=== PATIENT | male | born 2000 | race Caucasian/White ===

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

== ENCOUNTER 2022-08-31 16:00 | Observation (INO) | payer SELFPAY ==
[2022-08-31 16:06] VITALS: BP 130/77; PULSE 106; RESP 14; TEMP 36.8; O2SAT 97; BMI 27.2
--- NOTE | 2022-08-31 16:56 | W.ED.GENADLT ---
Documented by User: KAUR Barclay 09/01/22 00:33 HPI - General Adult General: Chief complaint: General Medical Stated complaint: throat swelling Time Seen by Provider: 08/31/22 16:11 History of Present Illness: Patient is a 22-year-old male comes to the ED with acid reflux. Patient has a history of acid reflux and takes omeprazole for it daily. Patient says symptoms started at rest approximately 4 days ago. He currently takes omeprazole and his also taken some famotidine as well since start of symptoms. He describes having a burning type pain in his stomach that has since radiated up into his throat as well. Chest pain worsens when he breathes in. Endorses having some burning chest pain as well. He reports some nausea but denies any episodes of emesis. he has tried taking some [id number] Tums as well and it has not provided any relief. Patient is a daily tobacco smoker. Patient admits to snorting cocaine approximately 48 hours ago. Associated symptoms: Reports chest pain; Deny dyspnea, headache(s), nausea, rash, palpitations or vomiting Review of Systems Const: Denies: fever(s), chills or fatigue Eyes: Denies: change in vision or eye discomfort ENMT: Denies: throat pain, odynophagia, nasal discharge or nasal congestion Card: Reports: chest pain; Denies: palpitations, edema, swelling of feet/ankles, dyspnea on exertion or orthopnea Resp: Denies: dyspnea, productive cough or non-productive cough GI: Reports: heartburn; Denies: abdominal pain, nausea, vomiting, diarrhea, constipation or hematochezia : Denies: flank pain, difficulty urinating, dysuria or hematuria Musc: Denies: neck pain, back pain or extremity swelling Skin/Breast: Denies: rash or new lesions Neuro: Denies: headache(s), numbness in extremities or weakness in extremities PFSH ED PFSH: Medical History Depression No pertinent family history Family History (Updated 09/01/22 @ 01:57 by Pearl Kaur MD) Other CAD (coronary artery disease) Social History Smoking and tobacco status: never smoked Alcohol intake: never Physical Exam Const: COMMON NORMALS: patient oriented x3 and alert GENERAL APPEARANCE: cooperative HENMT: COMMON NORMALS: normocephalic HEAD & SCALP: normocephalic MOUTH: Normal oral and palatal mucosa present THROAT: posterior oropharynx normal and uvula midline Neck/C-Spine: COMMON NORMALS: supple GENERAL: Yes normal visual inspection Resp: COMMON NORMALS: normal respiratory effort, No retractions, No use of accessory muscles and clear to auscultation bilaterally AUSCULTATION: clear to auscultation bilaterally Cardio: COMMON NORMALS: regular rate, regular rhythm, S1 normal heart sound present, S2 normal heart sound present, No gallops present (Cardio), No clicks present (Cardio), No murmurs present (Cardio) and Peripheral pulses 2+ throughout RATE: regular rate RHYTHM: regular rhythm HEART SOUNDS: S1 normal heart sound present and S2 normal heart sound present PERIPHERAL PULSES: Peripheral pulses 2+ throughout GI: COMMON NORMALS: Normal to inspection, nondistended, normoactive bowel sounds present, Soft to palpation, non-tender and no masses PALPATION: Yes Soft to palpation : COMMON NORMALS: Yes no CVA tenderness BLADDER/KIDNEY EXAM: Yes no CVA tenderness Back/Pelvis: COMMON NORMALS: no CVA tenderness Extremity: COMMON NORMALS: normal to inspection Neuro: COMMON NORMALS: patient oriented x3 SENSORIUM/ORIENTATION: Yes alert GAIT: Yes Normal gait present Skin: GENERAL SKIN EXAM: dry skin Course Consultations: Consultation #1: Contacted Dr. Fuentes about patient case and his elevated baseline troponin and the -1 delta after 2-hour troponin was taken. He thinks his chest pain is likely due to his cocaine use. He thinks patient should be admitted and have his troponins trended for 6 more hours and an echocardiogram tomorrow. Time: 21:25 Consultation #2: I Contact the hospitalist and told Dr. Kaur about patient case and he will be admitted to have troponins trended and an echocardiogram tomorrow. Time: 21:30 Vital Signs: Vital signs: Vital Signs Temperature 97.7 F 09/01/22 08:00 Pulse Rate 69 09/01/22 08:00 Respiratory Rate 16 09/01/22 08:00 Blood Pressure 118/78 09/01/22 08:00 Pulse Oximetry 95 09/01/22 08:00 Oxygen Delivery Me thod 09/01/22 08:00 MDM - General Adult Medical Decision Making Patient is a 22-year-old male comes to the ED with chest pain and acid reflux symptoms. He admits to snorting cocaine approximately 48 hours ago. He has a history of acid reflux and takes omeprazole and Zantac. Vitals are stable. Exam is benign. Chest x-ray showed no acute findings. CBC and CMP were unremarkable. Baseline troponin was 41 and 2-hour troponin was 40. EKG showed no acute findings and were normal sinus rhythm. I contacted Dr. Fuentes the bark fitter on-call and told about patient case. Given his age, drug use and elevated troponins he recommended having patient admitted and to continue following the troponin levels and he will do an echocardiogram tomorrow. I called Dr. Kaur the hospitalist and she had patient admitted. Dr. Escalante reviewed case and agreed with plan. Lab Data I reviewed the patient's lab results. 08/31/22 18:01 Radiology Impressions Chest X-Ray 08/31/22 18:36 IMPRESSION: No acute findings. Laboratory Results WBC 9.5 10^3/uL (4.5-13.0) 08/31/22 18:25 RBC 5.71 10^6/uL (4.1-5.3) H 08/31/22 18:25 Hgb 16.7 g/dL (11.7-16.6) H 08/31/22 18:25 Hct 48.2 % (42.0-52.0) 08/31/22 18:25 MCV 84.4 fl (80-94) 08/31/22 18:25 MCH 29.2 pg (28.0-34.0) 08/31/22 18:25 MCHC 34.6 g/dL (30.0-36.0) 08/31/22 18:25 RDW 12.6 % (12.1-15.1) 08/31/22 18:25 Plt Count 268 10^3/cmm (130-400) 08/31/22 18:25 MPV 10.6 fL (7.4-10.4) H 08/31/22 18:25 Neut % (Auto) 54.1 % 08/31/22 18:25 Lymph % (Auto) 29.7 % 08/31/22 18:25 Piute % (Auto) 10.1 % 08/31/22 18: Eos % (Auto) 4.6 % 08/31/22: Baso % (Auto) 1.2 % 08/31/22: Neut # (Auto) 5.15 10^3/uL (1.8-8.0) 08/31/22 18: Lymph # (Auto) 2.8 10^3/uL (1.5-6.5) 08/31/22: Pi[place] # (Auto) 1.0 10^3/uL (0.2-0.9) H 08/31/22: Eos # (Auto) 0.4 10^3/uL (0.0-0.8) 08/31/22: Baso # (Auto) 0.1 10^3/uL (0.0-0.1) 08/31/22: Nucleated RBC % (auto) 0 % 08/31/22: Nucleated RBCs # 0.0 /100WBC 08/31/22: Sodium 138 mmol/L (136-145) 08/31/22 18: Potassium 3.8 mmol/L (3.5-5.1) 08/31/22 18: Chloride 99 mmol/L (98-107) 08/31/22 18: Carbon Dioxide 26 mmol/L (22-29) 08/31/22 18: Anion Gap 16.8 (5-19) 08/31/22 18: BUN 13 mg/dL (6-20) 08/31/22 18: Creatinine 0.9 mg/dL (0.7-1.2) 08/31/22 18: GFR Calculation 107.6 mL/min (90-130) 08/31/22 18: Glucose 103 mg/dL (65-115) 08/31/22 18: Estimat Average Glucose 97 08/31/22: Hemoglobin A1c 5.0 % (4.0-6.0) 08/31/22: Calculated Osmolality 286 mOsm/kg (285-295) 08/31/22 18: Calcium 10.3 mg/dL (8.5-10.5) 08/31/22 18:01 Total Bilirubin 2.9 mg/dL (0.15-1.2) H 08/31/22 18:01 AST 17 U/L (0-40) 08/31/22 18:01 ALT 12 U/L (0-41) 08/31/22 18:01 Alkaline Phosphatase 48 U/L (40-130) 08/31/22 18:01 Troponin T Baseline 41 ng/L (0-15) H 08/31/22 18:01 Troponin T 120 Minute 40.68 ng/L (0-15) H 08/31/22 19:54 Delta Troponin T -0.32 ABS# (0-10) L 08/31/22 19:54 Total Protein 8.4 g/dL (6.6-8.7) 08/31/22 18:01 Albumin 5.0 g/dL (3.5-5.2) 08/31/22 18:01 Globulin 3.4 g/dL (1.3-4.6) 08/31/22 18:01 Triglycerides 81 mg/dL (0-150) 08/31/22 19:45 Cholesterol 114 mg/dL (0-200) 08/31/22 19:45 LDL Cholesterol, Calc 58 mg/dL (50-129) 08/31/22 19:45 HDL Cholesterol 40 mg/dL (60-100) L 08/31/22 19:45 LDL/HDL Ratio 1.45 RATIO (0.00-3.22) 08/31/22 19:45 Cholesterol/HDL Ratio 2.85 mg/dL (1.0-5.00) 08/31/22 19:45 EKG Data EKG 1: EKG interpretation date: 08/31/22 Interpretation: Sinus rhythm, 80 bpm, no ST segment ovation depression seen. EKG reviewed by Dr. Escalante and he agreed that there are no acute findings. Computer generated interpretation: Chest X-Ray 08/31/22 18:36 IMPRESSION: No acute findings. Discharge Plan Discharge Patient Disposition: Admitted As Inpatient Admit Provider: Pearl Kaur Clinical Impression: Chest pain Qualifiers: Chest pain type: unspecified Qualified Code(s): R07.9 - Chest pain, unspecified Condition: Stable Discharge Diet: Regular Discharge Activity: Resume usual activity and Increase activity as tolerated Coding Level of Care Code ED Furnace Puncher for Chg Fwd Exam Comprehensive Documented by User: Pearl Kaur MD 08/31/22 22:49 HPI - General Adult General: Chief complaint: General Medical Stated complaint: throat swelling Time Seen by Provider: 08/31/22 16:11 PFSH ED PFSH: Medical History Depression No pertinent family history Family History (Updated 09/01/22 @ 01:57 by Pearl Kaur MD) Other CAD (coronary artery disease) Social History Smoking and tobacco status: never smoked Alcohol intake: never Course Vital Signs: Vital signs: Vital Signs Temperature 97.7 F 09/01/22 08:00 Pulse Rate 69 09/01/22 08:00 Respiratory Rate 16 09/01/22 08:00 Blood Pressure 118/78 09/01/22 08:00 Pulse Oximetry 95 09/01/22 08:00 Oxygen Delivery Me thod 09/01/22 08:00 MDM - General Adult Medical Decision Making per ER provider Lab Data 08/31/22 18:01 Radiology Impressions Chest X-Ray 08/31/22 18:36 IMPRESSION: No acute findings. Laboratory Results WBC 9.5 10^3/uL (4.5-13.0) 08/31/22 18:25 RBC 5.71 10^6/uL (4.1-5.3) H 08/31/22 18:25 Hgb 16.7 g/dL (11.7-16.6) H 08/31/22 18:25 Hct 48.2 % (42.0-52.0) 08/31/22 18:25 MCV 84.4 fl (80-94) 08/31/22 18:25 MCH 29.2 pg (28.0-34.0) 08/31/22 18:25 MCHC 34.6 g/dL (30.0-36.0) 08/31/22 18: RDW 12.6 % (12.1-15.1) 08/31/22 18: Plt Count 268 10^3/cmm (130-400) 08/31/22 18: MPV 10.6 fL (7.4-10.4) H 08/31/22 18: Neut % (Auto) 54.1 % 08/31/22: Lymph % (Auto) 29.7 % 08/31/22: Piute % (Auto) 10.1 % 08/31/22: Eos % (Auto) 4.6 % 08/31/22: Baso % (Auto) 1.2 % 08/31/22 Neut # (Auto) 5.15 10^3/uL (1.8-8.0) 08/31/22: Lymph # (Auto) 2.8 10^3/uL (1.5-6.5) 08/31/22: Piute # (Auto) 1.0 10^3/uL (0.2-0.9) H 08/31/22: Eos # (Auto) 0.4 10^3/uL (0.0-0.8) 08/31/22: Baso # (Auto) 0.1 10^3/uL (0.0-0.1) 08/31/22: Nucleated RBC % (auto) 0 % 08/31/22: Nucleated RBCs # 0.0 /100WBC 08/31/22 18: Sodium 138 mmol/L (136-145) 08/31/22 18: Potassium 3.8 mmol/L (3.5-5.1) 08/31/22 18: Chloride 99 mmol/L (98-107) 08/31/22 18: Carbon Dioxide 26 mmol/L (22-29) 08/31/22 18: Anion Gap 16.8 (5-19) 08/31/22 18: BUN 13 mg/dL (6-20) 08/31/22 18: Creatinine 0.9 mg/dL (0.7-1.2) 08/31/22 18: GFR Calculation 107.6 mL/min (90-130) 08/31/22 18: Glucose 103 mg/dL (65-115) 08/31/22 18: Estimat Average Glucose 97 08/31/22 18: Hemoglobin A1c 5.0 % (4.0-6.0) 08/31/22 18: Calculated Osmolality 286 mOsm/kg (285-295) 08/31/22 18: Calcium 10.3 mg/dL (8.5-10.5) 08/31/22 18: Total Bilirubin 2.9 mg/dL (0.15-1.2) H 08/31/22 18: AST 17 U/L (0-40) 08/31/22 18: ALT 12 U/L (0-41) 08/31/22 18: Alkaline Phosphatase 48 U/L (40-130) 08/31/22 18: Troponin T Baseline 41 ng/L (0-15) H 08/31/22 18: Troponin T 120 Minute 40.68 ng/L (0-15) H 08/31/22 19:54 Delta Troponin T -0.32 ABS# (0-10) L 08/31/22 19:54 Total Protein 8.4 g/dL (6.6-8.7) 08/31/22 18: Albumin 5.0 g/dL (3.5-5.2) 08/31/22 18: Globulin 3.4 g/dL (1.3-4.6) 08/31/22 18: Triglycerides 81 mg/dL (0-150) 08/31/22 19:45 Cholesterol 114 mg/dL (0-200) 08/31/22 19:45 LDL Cholesterol, Calc 58 mg/dL (50-129) 08/31/22 19:45 HDL Cholesterol 40 mg/dL (60-100) L 08/31/22 19:45 LDL/HDL Ratio 1.45 RATIO (0.00-3.22) 08/31/22 19:45 Cholesterol/HDL Ratio 2.85 mg/dL (1.0-5.00) 08/31/22 19:45 EKG Data EKG 1: Computer generated interpretation: Chest X-Ray 08/31/22 18:36 IMPRESSION: No acute findings. Other Data see hospitalist note. This note assigned to hospitalist by [facility] for unclear reasons Discharge Plan Discharge Patient Disposition: Admitted As Inpatient Admit Provider: Pearl Kaur Clinical Impression: Chest pain Qualifiers: Chest pain type: unspecified Qualified Code(s): R07.9 - Chest pain, unspecified Condition: Stable Discharge Diet: Regular Discharge Activity: Resume usual activity and Increase activity as tolerated Coding Level of Care Code ED Furnace Puncher for Chg Fwd Exam Comprehensive Documented by User: Modesto Escalante DO 09/01/22 16:09 HPI - General Adult General: Chief complaint: General Medical Stated complaint: throat swelling Time Seen by Provider: 08/31/22 16:11 [facility] ED PFSH: Medical History Depression No pertinent family history Family History (Updated 09/01/22 @ 01:57 by Pearl Kaur MD) Other CAD (coronary artery disease) Social History Smoking and tobacco status: never smoked Alcohol intake: never Course Vital Signs: Vital signs: Vital Signs Temperature 97.7 F 09/01/22 08:00 Pulse Rate 69 09/01/22 08:00 Respiratory Rate 16 09/01/22 08:00 Blood Pressure 118/78 09/01/22 08:00 Pulse Oximetry 95 09/01/22 08:00 Oxygen Delivery Me thod 09/01/22 08:00 [facility] - General Adult Medical Decision Making Patient is a 22-year-old male comes to the ED with chest pain and acid reflux symptoms. He admits to snorting cocaine approximately 48 hours ago. He has a history of acid reflux and takes omeprazole and Zantac. Vitals are stable. Exam is benign. Chest x-ray showed no acute findings. CBC and CMP were unremarkable. Baseline troponin was 41 and 2-hour troponin was 40. EKG showed no acute findings and were normal sinus rhythm. I contacted Dr. Fuentes the bark fitter on-call and told about patient case. Given his age, drug use and elevated troponins he recommended having patient admitted and to continue following the troponin levels and he will do an echocardiogram tomorrow. I called Dr. Kaur the hospitalist and she had patient admitted. Dr. Escalante reviewed case and agreed with plan. This patient was originally seen by Mr. Vidal PA-C. I agree with his history, evaluation, and management. Lab Data 08/31/22 18:01 Radiology Impressions Chest X-Ray 08/31/22 18:36 IMPRESSION: No acute findings. Laboratory Results WBC 9.5 10^3/uL (4.5-13.0) 08/31/22 18: RBC 5.71 10^6/uL (4.1-5.3) H 08/31/22 18: Hgb 16.7 g/dL (11.7-16.6) H 08/31/22 18: Hct 48.2 % (42.0-52.0) 08/31/22 18: MCV 84.4 fl (80-94) 08/31/22 18: MCH 29.2 pg (28.0-34.0) 08/31/22 18: MCHC 34.6 g/dL (30.0-36.0) 08/31/22 18: RDW 12.6 % (12.1-15.1) 08/31/22 18: Plt Count 268 10^3/cmm (130-400) 08/31/22 18: MPV 10.6 fL (7.4-10.4) H 08/31/22 18:25 Neut % (Auto) 54.1 % 08/31/22 18: Lymph % (Auto) 29.7 % 08/31/22 18:25 Piute % (Auto) 10.1 % 08/31/22 18: Eos % (Auto) 4.6 % 08/31/22 18: Baso % (Auto) 1.2 % 08/31/22 18: Neut # (Auto) 5.15 10^3/uL (1.8-8.0) 08/31/22 18: Lymph # (Auto) 2.8 10^3/uL (1.5-6.5) 08/31/22 18:25 Piute # (Auto) 1.0 10^3/uL (0.2-0.9) H 08/31/22 18: Eos # (Auto) 0.4 10^3/uL (0.0-0.8) 08/31/22 18: Baso # (Auto) 0.1 10^3/uL (0.0-0.1) 08/31/22: Nucleated RBC % (auto) 0 % 08/31/22: Nucleated RBCs # 0.0 /100WBC 08/31/22 18: Sodium 138 mmol/L (136-145) 08/31/22 18: Potassium 3.8 mmol/L (3.5-5.1) 08/31/22 18: Chloride 99 mmol/L (98-107) 08/31/22 18: Carbon Dioxide 26 mmol/L (22-29) 08/31/22 18: Anion Gap 16.8 (5-19) 08/31/22 18: BUN 13 mg/dL (6-20) 08/31/22 18: Creatinine 0.9 mg/dL (0.7-1.2) 08/31/22 18: GFR Calculation 107.6 mL/min (90-130) 08/31/22 18: Glucose 103 mg/dL (65-115) 08/31/22 18: Estimat Average Glucose 97 08/31/22: Hemoglobin A1c 5.0 % (4.0-6.0) 08/31/22: Calculated Osmolality 286 mOsm/kg (285-295) 08/31/22 18: Calcium 10.3 mg/dL (8.5-10.5) 08/31/22 18: Total Bilirubin 2.9 mg/dL (0.15-1.2) H 08/31/22 18: AST 17 U/L (0-40) 08/31/22 18: ALT 12 U/L (0-41) 08/31/22 18: Alkaline Phosphatase 48 U/L (40-130) 08/31/22 18: Troponin T Baseline 41 ng/L (0-15) H 08/31/22 18:01 Troponin T 120 Minute 40.68 ng/L (0-15) H 08/31/22 19:54 Delta Troponin T -0.32 ABS# (0-10) L 08/31/22 19:54 Total Protein 8.4 g/dL (6.6-8.7) 08/31/22 18:01 Albumin 5.0 g/dL (3.5-5.2) 08/31/22 18:01 Globulin 3.4 g/dL (1.3-4.6) 08/31/22 18:01 Triglycerides 81 mg/dL (0-150) 08/31/22 19:45 Cholesterol 114 mg/dL (0-200) 08/31/22 19:45 LDL Cholesterol, Calc 58 mg/dL (50-129) 08/31/22 19:45 HDL Cholesterol 40 mg/dL (60-100) L 08/31/22 19:45 LDL/HDL Ratio 1.45 RATIO (0.00-3.22) 08/31/22 19:45 Cholesterol/HDL Ratio 2.85 mg/dL (1.0-5.00) 08/31/22 19:45 EKG Data EKG 1: Computer generated interpretation: Chest X-Ray 08/31/22 18:36
[2022-08-31] MEDS: lidocaine 2% viscous 15 ML, aluminum-mag hydrox-simethicon 30 ML, sucralfate oral liq 1 GM PO (17:12)
--- NOTE | 2022-08-31 17:59 | ECG_ITS ---
[facility] Test Date: 2022-08-31 Pat Name: Stanley Dykes Department: Room: Gender: Male Network Coordinator: : 2000 Requested By: Micky Drake Order Number: [id number] Larios MD: William Hilton M.D. Measurements Intervals [place] Rate: 80 P: 81 SD: 135 QRS: 93 QRSD: 96 T: 66 QT: 354 QTc: 410 Interpretive Statements SINUS RHYTHM WITH SINUS ARRHYTHMIA BORDERLINE RIGHT AXIS DEVIATION [QRS AXIS > 90] No previous ECG available for comparison Electronically Signed On 09-03-2022 18:25:46 AGRICULTURAL SCIENTIST by William Hilton M.D. [id number]
[2022-08-31 18:27] LABS: Troponin(5th) Baseline 41 ng/L (0-15)
[2022-08-31 18:31] LABS: Basophils # 0.1 10^3/uL (0.0-0.1); Basophils % 1.2 %; Eosinophils # 0.4 10^3/uL (0.0-0.8); Eosinophils % 4.6 %; Hematocrit 48.2 % (42.0-52.0); Hemoglobin 16.7 g/dL (11.7-16.6); Lymphocytes # 2.8 10^3/uL (1.5-6.5); Lymphocytes % 29.7 %; Mean Corpuscular HGB Conc 34.6 g/dL (30.0-36.0); Mean Corpuscular Hemoglobin 29.2 pg (28.0-34.0); Mean Corpuscular Volume 84.4 fl (80-94); Mean Platelet Volume 10.6 fL (7.4-10.4); Monocytes % 10.1 %; Neutrophils # 5.15 10^3/uL (1.8-8.0); Neutrophils % 54.1 %; Nucleated Red Blood Cells % 0 %; Platelet Count 268 10^3/cmm (130-400); Red Blood Count 5.71 10^6/uL (4.1-5.3); Red Cell Distribution Width 12.6 % (12.1-15.1); White Blood Count 9.5 10^3/uL (4.5-13.0)
--- NOTE | 2022-08-31 18:36 | XRR_ITS ---
PROCEDURE INFORMATION: Exam: XR Chest Exam date and time: 08/31/2022 7:51 PM Age: 22 years old Clinical indication: Pain; Chest pressure; Additional info: Cp TECHNIQUE: Imaging protocol: Radiologic exam of the chest. Views: 1 view. COMPARISON: No relevant prior studies available. FINDINGS: Lungs: Unremarkable. No consolidation. Pleural spaces: Unremarkable. No pleural effusion. No pneumothorax. Heart/Mediastinum: Unremarkable. No cardiomegaly. Bones/joints: Unremarkable. XR/XR chest 1V portable [id number] IMPRESSION: No acute findings.
[2022-08-31 18:37] LABS: Alanine Aminotransferase 12 U/L (0-41); Alkaline Phosphatase 48 U/L (40-130); Anion Gap 16.8 (5-19); Aspartate Amino Transferase 17 U/L (0-40); Blood Urea Nitrogen 13 mg/dL (6-20); Calcium 10.3 mg/dL (8.5-10.5); Carbon Dioxide 26 mmol/L (22-29); Chloride 99 mmol/L (98-107); Creatinine Clr Calc Pharmacy 144.9504; Globulin 3.4 g/dL (1.3-4.6); Glomerular Filtration Rate 107.6 mL/min (90-130); Glucose 103 mg/dL (65-115); Osmolality Calculated 286 mOsm/kg (285-295); Potassium 3.8 mmol/L (3.5-5.1); Sodium 138 mmol/L (136-145); Total Bilirubin 2.9 mg/dL (0.15-1.2); Total Protein 8.4 g/dL (6.6-8.7)
[2022-08-31 18:39] VITALS: RESP 16
[2022-08-31] MEDS: morphine 4 mg/mL SDV 1 mL IM (18:39)
[2022-08-31] MEDS: aspirin 81 mg Chew Tablet 324 MG PO (20:09)
[2022-08-31 20:10] VITALS: RESP 18
[2022-08-31] MEDS: morphine 4 mg/mL SDV 1 mL IVP (20:10)
--- NOTE | 2022-08-31 20:19 | ECG_ITS ---
[facility] Test Date: 2022-08-31 Pat Name: Stanley Dykes Department: Room: Gender: Male Composition Roll Maker And Cutter: : 2000 Requested By: Micky Drake Order Number: [id number] Larios MD: William Hilton M.D. Measurements Intervals [place] Rate: 76 P: 61 ME: 134 QRS: 78 QRSD: 98 T: 46 QT: 400 QTc: 450 Interpretive Statements SINUS RHYTHM WITH SINUS ARRHYTHMIA Compared to ECG 08/31/2022 17:59:50 No significant changes Electronically Signed On 09-03-2022 18:31:33 BOOKMOBILE LIBRARIAN by William Hilton M.D. [id number]
[2022-08-31 20:27] LABS: Troponin 5 2HR 40.68 ng/L (0-15)
[2022-08-31 20:30] LABS: Troponin 5 2HR Delta -0.32 ABS# (0-10)
[2022-08-31 21:34] VITALS: BP 131/80; PULSE 70; RESP 11; O2SAT 96
[2022-08-31] MEDS: LORazepam 2 mg/mL INJ 1 mL 1 MG IVP (22:02)
[2022-08-31 22:23] LABS: D Dimer <= 0.27 ug/mIFEU (0-0.59)
[2022-08-31 22:50] VITALS: BP 111/94; PULSE 85; RESP 25; O2SAT 98
[2022-08-31 23:13] LABS: Estmated Average Glucose 97
[2022-08-31 23:21] VITALS: RESP 16
[2022-08-31] MEDS: morphine 4 mg/mL SDV 1 mL 2 MG IVP (23:21)
--- NOTE | 2022-08-31 23:23 | PC.NURSE ---
Patient arrived to the floor c/o pain 10/10 in stomach and throat. Patient says I need some more of that Morphine. PRN Morphine given.
--- NOTE | 2022-08-31 23:36 | PC.NURSE ---
Per dec, patient received 8 mg Morphine and 1 mg Ativan in the ED. Patient given 2 mg Morphine after arrival on floor. Patient requesting that I ask the doctor for more Ativan and Morphine. Dr. Kaur notified.
[2022-08-31 23:42] LABS: Chol HDL Ratio 2.85 mg/dL (1.0-5.00); Cholesterol 114 mg/dL (0-200); HDL Cholesterol 40 mg/dL (60-100); LDL Cholesterol Calculated 58 mg/dL (50-129); LDL HDL Ratio 1.45 RATIO (0.00-3.22); Triglycerides 81 mg/dL (0-150)
[2022-09-01 00:02] VITALS: BP 119/78; PULSE 84; RESP 18; TEMP 36.8; O2SAT 98
--- NOTE | 2022-09-01 00:04 | PC.NURSE ---
Entered patient's room to check patient's vital signs. Mr. Dykes was talking to a visitor at the bedside and said That nurse that gave me morphine this last time is not going to give it to me anymore because when she did it I couldn't even feel it. I couldn't even feel it in my head. This nurse tech then asked They gave you morphine and it didn't work? Are you still hurting? Mr. Dykes replied Yes she gave it to me and I couldn't even feel it. It didn't do anything. Took patient's vitals, oriented patient to the room, put bed rails up, and then notified nurse.
--- NOTE | 2022-09-01 00:18 | PC.NURSE ---
Addendum entered by Theresa Gamez RN 09/01/22 00:35: Morphine 2 mg x1 ordered. Original Note: Patient hit call light and stated Am I gonna get something for this pain, or what? Dr. Kaur notified.
--- NOTE | 2022-09-01 00:36 | ECG_ITS ---
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 Measurements Intervals [place] Rate: 72 P: 72 MS: 142 QRS: 96 QRSD: 98 T: 66 QT: 432 QTc: 475 Interpretive Statements SINUS RHYTHM BORDERLINE RIGHT AXIS DEVIATION [QRS AXIS > 90] Compared to ECG 08/31/2022 20:19:53 Sinus arrhythmia no longer present Electronically Signed On 09-03-2022 18:31:22 DROP WIRE BUILDER by William Hilton M.D. [email or web address] [email or web address] Wind [email or web address] [email or web address]/OM/[id number]
[2022-09-01 00:45] VITALS: RESP 16
[2022-09-01] MEDS: morphine 4 mg/mL SDV 1 mL 2 MG IVP (00:45)
--- NOTE | 2022-09-01 00:57 | PC.NURSE ---
Patient again asking for more of that Ativan. Dr. Kaur notified. No new orders.
--- NOTE | 2022-09-01 01:14 | PC.NURSE ---
Patient refusing urine drug screen.
[2022-09-01 01:36] LABS: Lipase 15 U/L (13-60)
[2022-09-01 01:37] LABS: Troponin 5 6HR 39.22 ng/L (0-15)
[2022-09-01 01:40] LABS: Troponin 5 6HR Delta -1.78 ng/L (0-12)
--- NOTE | 2022-09-01 01:40 | P.HP_ITS ---
Providers/Chief Complaint Admitting Physician: Pearl Kaur MD Primary Care Provider: QUYNH Schuster Chief Complaint: throat swelling History of Present Illness Stanley Dykes is a 22 year old male with a past medical substance abuse including marijuana and cocaine, most recently 3 to 4 days ago. Patient presents currently with with complaints of upper abdominal and lower chest discomfort. States that symptoms started about 4 days ago. He thought this is related to acid reflux however taking omeprazole has not given him any benefit over the last 3 days. States that the pain is located around the epigastric region, radiating upwards and downwards from there. Rated as 5 out of 10 in intensity. Nonradiating. No change with exertion or rest. No change with food consumption. He denies any binge alcohol drinking. No past history of pancreatitis. No past history of known cardiac issues. No history of valvular abnormalities. Premature CAD in family with of father at age 36 reportedly from a heart attack. Last snorted cocaine about 3 days ago. However claims that symptoms were ongoing even prior to this. Denies any dyspnea orthopnea PND lower e xtremity swelling. Review of Systems General: Reports: 10 or more systems reviewed and unremarkable except in HPI and below Const: Denies: fever(s), chills or body aches Eyes: Denies: change in vision, blurry vision or photophobia ENMT: Reports: hoarseness; Denies: throat pain, enlarged tonsils, odynophagia or nasal congestion Card: Denies: chest pain, palpitations, irregular heart rhythm, edema, swelling of feet/ankles, lightheadedness, pre-syncope, dyspnea on exertion or orthopnea Resp: Denies: dyspnea, productive cough, non-productive cough, wheezing, stridor, pain on inspiration, change in phlegm color, hemoptysis or chest congestion GI: Denies: abdominal pain, nausea, vomiting, hematemesis, coffee ground emesis, dysphagia, heartburn, diarrhea, constipation, GI cramping, change in stool character, hematochezia or melena : Denies: flank pain, dysuria, urinary frequency, urinary urgency, urinary hesitancy or hematuria Musc: Denies: neck pain, back pain, extremity pain, joint swelling, joint warmth or deformity Neuro: Denies: headache(s), numbness in extremities, weakness in extremities, sensory changes, difficulty walking, frequent falls, dizziness, vertigo, behavioral changes, Slurred speech present or seizure-like activity Psych: Denies: anxiety, depression, suicidal ideation or homicidal ideation Endo: Denies: polyuria, polydipsia, tired all the time, cold intolerance or hot flashes Dave/Lymph: Denies: easy bruising or easy bleeding Medications/Allergies Home Medications Medication Instructions Recorded Confirmed Last Taken Type cetirizine 10 mg tablet (All Day 10 mg PO DAILY PRN Allergy Symptoms 05/04/21 08/31/22 Unknown History Allergy (cetirizine)) omeprazole 40 mg capsule,delayed 40 mg PO DAILY 8 weeks #60 caps 08/31/22 08/31/22 Unknown Rx release ranitidine HCl 150 mg tablet 150 mg PO DAILY 08/31/22 08/31/22 Unknown History Allergies Allergy/AdvReac Type Severity Reaction Status Date / Time sertraline [From Zoloft] Allergy ADR-Depress Verified 08/31/22 14:43 ion PFSH Acute PFSH: Medical History Depression No pertinent family history Family History (Updated 09/01/22 @ 01:57 by Pearl Kaur MD) Other CAD (coronary artery disease) Social History Smoking and tobacco status: never smoked Alcohol intake: never Vitals/I&O/Wt Last Vital Signs Temp 98.2 F 09/01/22 00:02 Pulse 84 09/01/22 00:02 Resp 16 09/01/22 00:45 BP 119/78 09/01/22 00:02 Pulse Ox 98 09/01/22 00:02 O2 Del Method 09/01/22 00:02 Weight last 48 hrs Weight 86.183 kg Physical Exam Narrative: General: No acute distress, AO x3 HEENT: PERRLA, pupils bilaterally equal and reactive, pallors not present Chest: Normal vesicular breath sounds, no added sounds, equal good air entry bilaterally CVS: S1-S2 regular, no murmurs, no tachycardia, no gallops, no rubs Abdomen: Soft, nontender, no organomegaly, bowel sounds present Neuro: No focal deficits, no facial deformity, AO x3, power 5/5 in all limbs Data 08/31/22 18:25 08/31/22 18:01 Other Labs: Radiology Impressions Chest X-Ray 08/31/22 18:36 IMPRESSION: No acute findings. Laboratory Results WBC 9.5 10^3/uL (4.5-13.0) 08/31/22 18:25 RBC 5.71 10^6/uL (4.1-5.3) H 08/31/22 18: Hgb 16.7 g/dL (11.7-16.6) H 08/31/22 18: Hct 48.2 % (42.0-52.0) 08/31/22 18: MCV 84.4 fl (80-94) 08/31/22 18: MCH 29.2 pg (28.0-34.0) 08/31/22 18: MCHC 34.6 g/dL (30.0-36.0) 08/31/22 18: RDW 12.6 % (12.1-15.1) 08/31/22 18: Plt Count 268 10^3/cmm (130-400) 08/31/22 18: MPV 10.6 fL (7.4-10.4) H 08/31/22 18: Neut % (Auto) 54.1 % 08/31/22 18: Lymph % (Auto) 29.7 % 08/31/22 18: Sequoyah % (Auto) 10.1 % 08/31/22 18: Eos % (Auto) 4.6 % 08/31/22: Baso % (Auto) 1.2 % 08/31/22: Neut # (Auto) 5.15 10^3/uL (1.8-8.0) 08/31/22 18: Lymph # (Auto) 2.8 10^3/uL (1.5-6.5) 08/31/22 18: Sequoyah # (Auto) 1.0 10^3/uL (0.2-0.9) H 08/31/22 18:25 Eos # (Auto) 0.4 10^3/uL (0.0-0.8) 08/31/22 18: Baso # (Auto) 0.1 10^3/uL (0.0-0.1) 08/31/22 18: Nucleated RBC % (auto) 0 % 08/31/22 18: Nucleated RBCs # 0.0 /100WBC 08/31/22 18: D-Dimer <= 0.27 ug/mIFEU (0-0.59) 08/31/22 22:03 Sodium 138 mmol/L (136-145) 08/31/22 18: Potassium 3.8 mmol/L (3.5-5.1) 08/31/22 18: Chloride 99 mmol/L (98-107) 08/31/22 18: Carbon Dioxide 26 mmol/L (22-29) 08/31/22 18: Anion Gap 16.8 (5-19) 08/31/22 18: BUN 13 mg/dL (6-20) 08/31/22 18: Creatinine 0.9 mg/dL (0.7-1.2) 08/31/22 18: GFR Calculation 107.6 mL/min (90-130) 08/31/22 18: Glucose 103 mg/dL (65-115) 08/31/22 18: Estimat Average Glucose 97 08/31/22 18: Hemoglobin A1c 5.0 % (4.0-6.0) 08/31/22 18: Calculated Osmolality 286 mOsm/kg (285-295) 08/31/22 18: Calcium 10.3 mg/dL (8.5-10.5) 08/31/22 18: Total Bilirubin 2.9 mg/dL (0.15-1.2) H 08/31/22 18: AST 17 U/L (0-40) 08/31/22 18: ALT 12 U/L (0-41) 08/31/22 18: Alkaline Phosphatase 48 U/L (40-130) 08/31/22 18: Troponin T Baseline 41 ng/L (0-15) H 08/31/22 18: Troponin T 120 Minute 40.68 ng/L (0-15) H 08/31/22 19:54 Delta Troponin T -0.32 ABS# (0-10) L 08/31/22 19:54 Troponin T Hi Sens 6Hr 39.22 ng/L (0-15) H 09/01/22 00:55 Troponin T Hi Sens 6Hr Delta -1.78 ng/L (0-12) L 09/01/22 00:55 Total Protein 8.4 g/dL (6.6-8.7) 08/31/22 18:01 Albumin 5.0 g/dL (3.5-5.2) 08/31/22 18:01 Globulin 3.4 g/dL (1.3-4.6) 08/31/22 18:01 Triglycerides 81 mg/dL (0-150) 08/31/22 19:45 Cholesterol 114 mg/dL (0-200) 08/31/22 19:45 LDL Cholesterol, Calc 58 mg/dL (50-129) 08/31/22:45 HDL Cholesterol 40 mg/dL (60-100) L 08/31/22 19:45 LDL/HDL Ratio 1.45 RATIO (0.00-3.22) 08/31/22 19:45 Cholesterol/HDL Ratio 2.85 mg/dL (1.0-5.00) 08/31/22 19:45 Lipase 15 U/L (13-60) 09/01/22 00:55 A&P Assessment and plan (1) Chest pain: 22-year-old male with no significant medical comorbidities except for polysubstance abuse presenting today with atypical chest pain. Pain is located mostly in his epigastric region radiating upwards. Appeared to be GERD initially, however he has had no relief with PPIs and GI cocktail. EKG is with sinus rhythm, nonspecific T wave abnormality. Baseline troponin returned at 41, trending down to 40 and then 39 at 2 and 6 hours respectively. D-dimer is negative. Low probability of PE. Chest x-ray is clear, without any gross consolidation. He does have a history of premature coronary artery disease in the family, we will go ahead and check an echocardiogram. Overall suspect low risk for coronary artery disease, however vasospastic disease cannot be ruled out given history of cocaine use. check lipase to evaluate for possible pancreatitis Case was discussed by ER provider Micky Hilton from cardiology with recommended observation- consult has been placed from ER Qualifiers: Chest pain type: unspecified Qualified Code(s): R07.9 - Chest pain, unspecified Attestations Medical Necessity Statement*: less than 2 midnight admission anticipated for evaluation of atypical chest pain Coding Level of Care Code Acute Client Service Representative for Chg Fwd Diagnoses Chest pain R07.9 Chest pain type: unspecified
--- NOTE | 2022-09-01 01:45 | ECG_ITS ---
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 Measurements Intervals [place] Rate: 65 P: 50 IA: 138 QRS: 93 QRSD: 101 T: 43 QT: 444 QTc: 465 Interpretive Statements SINUS RHYTHM BORDERLINE RIGHT AXIS DEVIATION [QRS AXIS > 90] Compared to ECG 09/01/2022 00:24:54 No significant changes Electronically Signed On 09-03-2022 18:31:15 CONE CLASSIFIER TENDER by William Hilton M.D. [email or web address] [email or web address] nelsonville health centerZS Pharma/store/OM/[id number]
--- NOTE | 2022-09-01 01:48 | PC.NURSE ---
Possible ST elevation on heart monitor. EKG taken and given to Dr. Kaur. Patient appeared to be sleeping when walking into room to take EKG. Nurse asked patient did you fall asleep? Patient states yes. Patient states hey none of them pain shots worked for me and I didn't get an Ativan shot when they gave me the pain shots. Dr. Kaur notified. No new orders.
[2022-09-01 03:56] VITALS: BP 105/65; PULSE 60; RESP 14; TEMP 36.3; O2SAT 96
[2022-09-01 04:48] VITALS: PULSE 73
--- NOTE | 2022-09-01 07:39 | USCV_ITS ---
Stanley Dykes Age: 22 Gender: M : 2000 Exam Date: 09/01/2022 08:33 Ordering Phys: Pearl Kaur MD Technologist: NIDIA Exam Location: [facility] [place] Indication: elevated troponin cp BP: 118 / 78 HR: 54 Rhythm: Sinus Technical Quality: Adequate MEASUREMENTS (Male / Female) Normal Values 2D ECHO LV Diastolic Diameter PLAX 5.1 cm 4.2 - 5.9 / 3.9 - 5.3 cm LV Systolic Diameter PLAX 4.1 cm IVS Diastolic Thickness 1.0 cm 0.6 - 1.0 / 0.6 - 0.9 cm IVS Systolic Thickness 1.1 cm LVPW Diastolic Thickness 0.8 cm 0.6 - 1.0 / 0.6 - 0.9 cm LVPW Systolic Thickness 0.9 cm LVOT Diameter 2.3 cm LV Ejection Fraction 2D Teich 33.9 % LV Ejection Fraction MOD 2C 56.6 % LV Ejection Fraction 2C AL 56.0 % LA Diameter 2.7 cm IVC Diameter 0.9 cm M-MODE Aortic Annulus Diameter 2.9 cm LA Ao Ratio MM 1.1 MV E Point Septal Separation 0.6 cm DOPPLER AV Peak Velocity 95.0 cm/s LVOT Peak Velocity 69.0 cm/s AV Area Cont Eq vti 2.7 cm squared AV Area Cont Eq pk 2.9 cm squared MV Area PHT 5.0 cm squared Mitral E to A Ratio 2.1 MV E' Velocity 49.5 cm/s Mitral E to MV E' Ratio 4.7 Mitral E to LV E' Lateral Ratio 4.4 Mitral E to LV E' Septal Ratio 5.0 TR Peak Velocity 208.0 cm/s TR Peak Gradient 17.3 mmHg TV Peak E Velocity 92.0 cm/s Right Atrial Pressure 3.0 mmHg Pulmonary Artery Systolic Pressu 20.3 mmHg RV Acceleration Time 0.1 s FINDINGS Left Ventricle Left ventricle in size. LV systolic function is normal with EF of 55-60%. No regional wall motion abnormalities are seen. Diastolic function is normal Right Ventricle Normal in size and function Right Atrium Normal in size Left Atrium Normal in size Mitral Valve Normal in size. Trace mitral regurgitation. Aortic Valve Structurally normal aortic valve. No significant stenosis or regurgitation. Tricuspid Valve Trace tricuspid regurgitation. Insufficient TR jet to calculate RVSP Pulmonic Valve Not well visualized. Pericardium Normal Aorta Normal in size IVC Appears to be normal CONCLUSIONS LV systolic function is normal with EF of 55-60% Diastolic function is normal Trace mitral regurgitation Trace tricuspid regurgitation No comparison studies are available William Hilton MD (Electronically Signed) Final Date: 09 September 2022 13:12 S
[2022-09-01 08:00] VITALS: BP 118/78; PULSE 69; RESP 16; TEMP 36.5; O2SAT 95
[2022-09-01] MEDS: aspirin 81 mg EC Tablet PO (08:17)
[2022-09-01] MEDS: pantoprazole DR 40 mg Tablet PO (08:17)
--- NOTE | 2022-09-01 09:11 | ECG_ITS ---
[facility] Test Date: 2022-09-01 Pat Name: Stanley Dykes Department: Room: 276 Gender: Male Pearl Hand: : 2000 Requested By: Hermilo Valdez Order Number: [id number] Ric MD: William Hilton M.D. Measurements Intervals [place] Rate: 58 P: 30 IL: 136 QRS: 81 QRSD: 98 T: 66 QT: 428 QTc: 423 Interpretive Statements SINUS BRADYCARDIA EARLY REPOLARIZATION [ST ELEVATION WITH NORMALLY INFLECTED T-WAVE] Compared to ECG 09/01/2022 01:45:25 Early repolarization now present Sinus rhythm no longer present Electronically Signed On 09-03-2022 18:23:44 GERIATRIC PHYSICAL THERAPIST by William Hilton M.D. [id number]
--- NOTE | 2022-09-01 09:43 | P.CONIM_ITS ---
Providers/Reason For Consult Consulting Physician/Specialty*: William Hilton MD/Cardiology Reason for Consult*: Chest pain Requesting Physician: Dr Escalante Attending Physician: Hermilo Valdez MD Primary Care Provider: QUYNH Schuster History of Present Illness History of Present Illness Stanley Dykes is a 22 year old male with no significant prior cardiac history has presented with chest discomfort and abdominal pain for the last 3 to 4 days. Patient has history of cocaine and marijuana use. Most recent use was 2 to 3 days back. Describes pain as substernal. Was 5/10 in intensity. Pain has subsided now. Initial troponin was 41 but did not trend up significantly. Echo shows normal LV systolic function. EKG shows normal sinus rhythm with no significant ST-T wave changes. Review of Systems General: Reports: 10 or more systems reviewed and unremarkable except in HPI and below Const: Denies: fever(s), chills or body aches Eyes: Denies: change in vision, blurry vision or photophobia ENMT: Reports: hoarseness; Denies: throat pain, enlarged tonsils, odynophagia or nasal congestion Card: Reports: chest pain; Denies: palpitations, irregular heart rhythm, edema, swelling of feet/ankles, lightheadedness, pre-syncope, dyspnea on exertion or orthopnea Resp: Denies: dyspnea, productive cough, non-productive cough, wheezing, stridor, pain on inspiration, change in phlegm color, hemoptysis or chest congestion GI: Denies: abdominal pain, nausea, vomiting, hematemesis, coffee ground emesis, dysphagia, heartburn, diarrhea, constipation, GI cramping, change in stool character, hematochezia or melena : Denies: flank pain, dysuria, urinary frequency, urinary urgency, urinary hesitancy or hematuria Musc: Denies: neck pain, back pain, extremity pain, joint swelling, joint warmth or deformity Neuro: Denies: headache(s), numbness in extremities, weakness in extremities, sensory changes, difficulty walking, frequent falls, dizziness, vertigo, behavioral changes, Slurred speech present or seizure-like activity Psych: Denies: anxiety, depression, suicidal ideation or homicidal ideation Endo: Denies: polyuria, polydipsia, tired all the time, cold intolerance or hot flashes Dave/Lymph: Denies: easy bruising or easy bleeding Medications/Allergies Home Medications Medication Instructions Recorded Confirmed Last Taken Type cetirizine 10 mg tablet (All Day 10 mg PO DAILY PRN Allergy Symptoms 05/04/21 08/31/22 Unknown History Allergy (cetirizine)) omeprazole 40 mg capsule,delayed 40 mg PO DAILY 8 weeks #60 caps 08/31/22 08/31/22 Unknown Rx release ranitidine HCl 150 mg tablet 150 mg PO DAILY 08/31/22 08/31/22 Unknown History Allergies Allergy/AdvReac Type Severity Reaction Status Date / Time sertraline [From Zoloft] Allergy ADR-Depress Verified 08/31/22 14:43 ion Current Medications Generic Name Dose Route Start Last Admin Trade Name Freq PRN Reason Stop Dose Admin Aspirin 81 mg 09/01/22 09:00 09/01/22 08:17 Aspirin 81 Mg Ec Tablet PO 81 mg DAILY MACIEL Administration Morphine Sulfate 2 mg 08/31/22 22:44 08/31/22 23:21 Morphine 4 Mg/Ml Sdv 1 Ml IVP 2 mg Q4H PRN Administration SEVERE PAIN Pantoprazole Sodium 40 mg 09/01/22 09:00 09/01/22 08:[address] 40 Mg Tablet PO 40 mg DAILY MACIEL Administration PFSH Acute PFSH: Medical History Depression No pertinent family history Family History Other CAD (coronary artery disease) Social History Smoking and tobacco status: never smoked Alcohol intake: never Vitals/I&O/Wt Last Vital Signs Temp 97.7 F 09/01/22 08:00 Pulse 69 09/01/22 08:00 Resp 16 09/01/22 08:00 BP 118/78 09/01/22 08:00 Pulse Ox 95 09/01/22 08:00 O2 Del Method 09/01/22 08:00 Weight last 48 hrs Weight 190 lb Physical Exam Narrative: GENERAL: Patient is alert, awake and oriented x3. [] NECK: No jugular vein distension. [] HEENT: No cyanosis. No icterus. No pallor. [] HEART: Regular S1 and S2. No murmur, rub or gallop. [] LUNGS: Clear to auscultate bilaterally. [] ABDOMEN: Soft, nontender and nondistended. Positive bowel sounds. No guarding, rebound or tenderness. [] CENTRAL NERVOUS SYSTEM: Grossly nonfocal. [] EXTREMITIES: Lower extremities with no edema bilaterally. Pulses palpable in the lower extremities, both dorsalis pedis and posterior tibial. [] Data 08/31/22 18:25 08/31/22 18:01 A&P Assessment and plan (1) Chest pain: Qualifiers: Chest pain type: unspecified Qualified Code(s): R07.9 - Chest pain, unspecified Plan Patient has atypical chest pain symptoms history of drug abuse with recent use. No evidence of ACS with no significant EKG changes, normal LV systolic function and no significant uptrend of troponins. Medical therapy at this time. Thank you for involving us with care of this patient. Please call with questions Coding Level of Care Code Acute Preservative Filler Machine Operator for Padmini Patterson Diagnoses Chest pain R07.9 Chest pain type: unspecified
[2022-09-01] MEDS: ondansetron 2 mg/ML SDV 2 mL 4 MG IVP (10:01)
[2022-09-01 10:11] LABS: Amphetamines Screen Urine Positive (Negative); Barbiturates Screen Urine Negative (Negative); Benzodiazepines Screen Urine Positive (Negative); Cocaine Screen Urine Positive (Negative); Opiate Screen Urine Positive (Negative); PCP Screen Urine Negative (Negative); THC Screen Urine Positive (Negative)
--- NOTE | 2022-09-01 11:50 | P.DS_ITS ---
Discharge Providers Date of Admission: 08/31/22 21:49 Date of Discharge: September 01, 2022 Attending Provider at Admission: Pearl Kaur MD Attending Provider at Discharge: Hermilo Valdez MD Primary Care Provider: QUYNH Schuster Diagnoses at Discharge Discharge Diagnosis (1) Chest pain: Status: Acute Qualifiers: Chest pain type: unspecified Qualified Code(s): R07.9 - Chest pain, unspecified (2) Drug abuse, amphetamine type: Status: Acute (3) Drug abuse, cocaine type: Status: Acute (4) Drug abuse, opioid type: Status: Acute Reason for Visit Reason for Visit: throat swelling Hospital Course Hospital Course Stanley Dykes is a 22 year old male with a past medical substance abuse including marijuana and cocaine, most recently 3 to 4 days ago.? Patient presents currently with with complaints of upper abdominal and lower chest discomfort.? States that symptoms started about 4 days ago.? He thought this is related to acid reflux however taking omeprazole has not given him any benefit over the last 3 days.? States that the pain is located around the epigastric region, radiating upwards and downwards from there.? Rated as 5 out of 10 in intensity.? Nonradiating.? No change with exertion or rest.? No change with food consumption. He denies any binge alcohol drinking.? No past history of pancreatitis.? No past history of known cardiac issues.? No history of valvular abnormalities.? Premature CAD in family with of father at age 36 reportedly from a heart attack.? Last snorted cocaine about 3 days ago.? However claims that symptoms were ongoing even prior to this.? Denies any dyspnea orthopnea PND lower extremity swelling. Patient over the hospital further evaluation and management. All his blood work came back negative except urine drug screen positive for amphetamines, cocaine, benzodiazepines, opiates. Patient declined drug abuse and states probably his pot was placed. Patient was seen by cardiology. Echocardiogram was done which was reported normal. He has been discharged in medically stable condition with advised to follow-up with primary care provider in 1 week. He was counseled in detail to avoid recreational drugs as it is possible including pot. Physical Exam Narrative: General: No acute distress, AO x3 HEENT: PERRLA, pupils bilaterally equal and reactive, pallors not present Chest: Normal vesicular breath sounds, no added sounds, equal good air entry bilaterally CVS: S1-S2 regular, no murmurs, no tachycardia, no gallops, no rubs Abdomen: Soft, nontender, no organomegaly, bowel sounds present Neuro: No focal deficits, no facial deformity, AO x3, power 5/5 in all limbs Psych: COMMON NORMALS: mental status grossly normal and Normal thought process present ACTIVITY/MOTOR BEHAVIOR: Yes appropriate eye contact, Yes fidgeting, Yes hyperactivity and Yes restless MOOD & AFFECT: Yes irritable THOUGHT PROCESS: Normal thought process present THOUGHT CONTENT: Yes Normal thought content present MEMORY/COGNITION: Yes memory grossly intact Discharge Data Studies Completed and Pending Completed Studies During Hospitalization Category Date Time Status XR chest 1V portable [id number] Stat Exams 08/31/22 18:36 Completed Pending at discharge Category Date Time Status CV. echo complete* [id number] Routine Ultrasound 09/01/22 07:39 Taken Radiology Impressions Chest X-Ray 08/31/22 18:36 IMPRESSION: No acute findings. Laboratory Results WBC 9.5 10^3/uL (4.5-13.0) 08/31/22 18:25 RBC 5.71 10^6/uL (4.1-5.3) H 08/31/22 18:25 Hgb 16.7 g/dL (11.7-16.6) H 08/31/22 18:25 Hct 48.2 % (42.0-52.0) 08/31/22 18:25 MCV 84.4 fl (80-94) 08/31/22 18:25 MCH 29.2 pg (28.0-34.0) 08/31/22 18:25 MCHC 34.6 g/dL (30.0-36.0) 08/31/22 18:25 RDW 12.6 % (12.1-15.1) 08/31/22 18:25 Plt Count 268 10^3/cmm (130-400) 08/31/22 18:25 MPV 10.6 fL (7.4-10.4) H 08/31/22 18:25 Neut % (Auto) 54.1 % 08/31/22 18:25 Lymph % (Auto) 29.7 % 08/31/22 18:25 [place] % (Auto) 10.1 % 08/31/22 18:25 Eos % (Auto) 4.6 % 08/31/22 18:25 Baso % (Auto) 1.2 % 08/31/22 18: Neut # (Auto) 5.15 10^3/uL (1.8-8.0) 08/31/22: Lymph # (Auto) 2.8 10^3/uL (1.5-6.5) 08/31/22 18: [place] # (Auto) 1.0 10^3/uL (0.2-0.9) H 08/31/22: Eos # (Auto) 0.4 10^3/uL (0.0-0.8) 08/31/22: Baso # (Auto) 0.1 10^3/uL (0.0-0.1) 08/31/22: Nucleated RBC % (auto) 0 % 08/31/22 Nucleated RBCs # 0.0 /100WBC 08/31/22 D-Dimer <= 0.27 ug/mIFEU (0-0.59) 08/31/22 22:03 Sodium 138 mmol/L (136-145) 08/31/22 18: Potassium 3.8 mmol/L (3.5-5.1) 08/31/22 18: Chloride 99 mmol/L (98-107) 08/31/22 18: Carbon Dioxide 26 mmol/L (22-29) 08/31/22 18: Anion Gap 16.8 (5-19) 08/31/22 18: BUN 13 mg/dL (6-20) 08/31/22 18: Creatinine 0.9 mg/dL (0.7-1.2) 08/31/22 18: GFR Calculation 107.6 mL/min (90-130) 08/31/22 18: Glucose 103 mg/dL (65-115) 08/31/22 18: Estimat Average Glucose 97 08/31/22: Hemoglobin A1c 5.0 % (4.0-6.0) 08/31/22 Calculated Osmolality 286 mOsm/kg (285-295) 08/31/22 18: Calcium 10.3 mg/dL (8.5-10.5) 08/31/22 18:01 Total Bilirubin 2.9 mg/dL (0.15-1.2) H 08/31/22 18:01 AST 17 U/L (0-40) 08/31/22 18:01 ALT 12 U/L (0-41) 08/31/22 18:01 Alkaline Phosphatase 48 U/L (40-130) 08/31/22 18:01 Troponin T Baseline 41 ng/L (0-15) H 08/31/22 18:01 Troponin T 120 Minute 40.68 ng/L (0-15) H 08/31/22 19:54 Delta Troponin T -0.32 ABS# (0-10) L 08/31/22 19:54 Troponin T Hi Sens 6Hr 39.22 ng/L (0-15) H 09/01/22 00:55 Troponin T Hi Sens 6Hr Delta -1.78 ng/L (0-12) L 09/01/22 00:55 Total Protein 8.4 g/dL (6.6-8.7) 08/31/22 18:01 Albumin 5.0 g/dL (3.5-5.2) 08/31/22 18:01 Globulin 3.4 g/dL (1.3-4.6) 08/31/22 18:01 Triglycerides 81 mg/dL (0-150) 08/31/22 19:45 Cholesterol 114 mg/dL (0-200) 08/31/22 19:45 LDL Cholesterol, Calc 58 mg/dL (50-129) 08/31/22 19:45 HDL Cholesterol 40 mg/dL (60-100) L 08/31/22 19:45 LDL/HDL Ratio 1.45 RATIO (0.00-3.22) 08/31/22 19:45 Cholesterol/HDL Ratio 2.85 mg/dL (1.0-5.00) 08/31/22 19:45 Lipase 15 U/L (13-60) 09/01/22 00:55 Urine Opiates Screen Positive ng/mL (Negative) H 09/01/22 09:40 Ur Barbiturates Screen Negative ng/mL (Negative) 09/01/22 09:40 Ur Phencyclidine Scrn Negative ng/mL (Negative) 09/01/22 09:40 Ur Amphetamines Screen Positive ng/mL (Negative) H 09/01/22 09:40 U Benzodiazepines Scrn Positive ng/mL (Negative) H 09/01/22 09:40 Urine Cocaine Screen Positive ng/mL (Negative) H 09/01/22 09:40 U Marijuana (THC) Screen Positive ng/mL (Negative) H 09/01/22 09:40 Vitals Last Vital Signs Temp 97.7 F 09/01/22 08:00 Pulse 69 09/01/22 08:00 Resp 16 09/01/22 08:00 BP 118/78 09/01/22 08:00 Pulse Ox 95 09/01/22 08:00 O2 Del Method 09/01/22 08:00 Discharge Plan Discharge Patient Disposition: Home Condition: Stable Prescriptions: Continued cetirizine [All Day Allergy (cetirizine)] 10 mg tablet 10 mg PO DAILY PRN (Reason: Allergy Symptoms) omeprazole 40 mg capsule,delayed release(DR/EC) 40 mg PO DAILY 56 Days Qty: 60 0RF Zantac 150 mg Tablet 150 mg PO DAILY Discharge Orders: Discharge Order (Routine); Ordered 09/01/22 Ordered By: Hermilo Valdez Referrals: Steve De La O [Referring] - 7-10 days Discharge Diet: Regular Discharge Activity: Resume usual activity and Increase activity as tolerated Patient Instructions: Opioid Safety Discharge Attestations Time Spent in Discharge Care*: greater than 30 min Specific Discharge Activities: educating patient, discussing with rn field case manager/social workers/dc planners, documenting/other paperwork and evaluating patient/reviewing data Time Spent in Smoking Cessation: more than 10 minutes Status at Discharge: Cognitive status at discharge: cognitively intact , Behavioral status at discharge: cooperative and can be uncooperative , Functional status at discharge: independent ambulation , Overall status at discharge: patient is back to baseline Quality Metrics Clinical Quality Measures [ No reported AMI, CVA or VTE this stay] Coding Level of Care Code Acute Chg FW DC note Diagnoses Chest pain R07.9 Chest pain type: unspecified Drug abuse, amphetamine type F15.10 Drug abuse, cocaine type F14.10 Drug abuse, opioid type F11.10
== END 2022-09-01 12:11 | disposition home or self-care (01) ==
LOC: ER 21:44 → MEDSURG 22:49
PROVIDERS: Admitting Provider Student in an Organized Health Care Education/Training Program; Emergency Provider Physician Assistant; PCP Nurse Practitioner Family; Visit Provider Student in an Organized Health Care Education/Training Program
DX: R07.9 Chest pain, unspecified (principal); F15.10 Other stimulant abuse, uncomplicated; F14.10 Cocaine abuse, uncomplicated; F11.10 Opioid abuse, uncomplicated; Z82.49 Family history of ischemic heart disease and other diseases of the circulatory system; K21.9 Gastro-esophageal reflux disease without esophagitis; F17.210 Nicotine dependence, cigarettes, uncomplicated
CPT/HCPCS: 36415; 71045; 80053; 80061; 80306; 83036; 83690; 84484; 85025; 85378; 93005; 93306; 96372; 96374; 96375; 96376; 99285; G0378; J2060; J2270; J2405